=== PATIENT | female | born 1990 | race Caucasian/White ===

== ENCOUNTER 2017-06-15 17:47 | Inpatient (IN) | payer OTHER ==
[~2017-06-15] VITALS: Ht 162.6 cm; Wt 75.9 kg
[2017-06-15] MEDS ORDERED: SODIUM CHLORIDE 0.9% 1,000 ML IV ONE (18:09)
[2017-06-15] MEDS ORDERED: SERT25TA PO (18:23)
[2017-06-15] MEDS ORDERED: SUMA100T3 PO (18:28)
[2017-06-15] MEDS ORDERED: SERT50TA PO (18:28)
[2017-06-15 18:29] LABS: HEMATOCRIT 41.4 % (34.6-47.8); HEMOGLOBIN 14.2 g/dL (11.7-16.4); WHITE BLOOD COUNT 8.9 x10^3/uL (3.4-10)
[2017-06-15] MEDS ORDERED: SODIUM CHLORIDE FLUSH 10ML SYR IVF ONE (18:30)
[2017-06-15] MEDS ORDERED: MORPHINE SULFATE 4 MG/ML, 1ML IVPush PRN (18:30)
[2017-06-15] MEDS ORDERED: ACETAMINOPHEN 500 MG TABLET PO ONE (18:30)
[2017-06-15] MEDS ORDERED: SODIUM CHLORIDE 0.9% 1,000ML IVBOLUS ONE (18:30)
[2017-06-15] MEDS ORDERED: ONDANSETRON 2MG/ML, 2ML IVPush ONE (18:30)
[2017-06-15 18:39] LABS: BLOOD UREA NITROGEN 9 mg/dL (7-18)
[2017-06-15] MEDS ORDERED: MORPHINE SULFATE 4 MG/ML, 1ML ONE ×2 (18:44→21:01)
[2017-06-15] MEDS ORDERED: ONDANSETRON 2MG/ML, 2ML ONE (18:44)
[2017-06-15] MEDS ORDERED: ACETAMINOPHEN 500 MG TABLET ONE (18:44)
[2017-06-15] MEDS ORDERED: LIDOCAINE 1%, 20ML INFIL ONE (19:00)
[2017-06-15] MEDS ORDERED: LIDOCAINE 1%, 20ML ONE (19:38)
[2017-06-15 21:00] LABS: GLUCOSE, CSF 54 mg/dL (40-80)
[2017-06-15] MEDS ORDERED: KETOROLAC 30 MG/1 ML IVPush ONE (21:00)
[2017-06-15] MEDS ORDERED: METOCLOPRAMIDE 5 MG/ML, 2ML IVPush ONE (21:00)
[2017-06-15] MEDS ORDERED: KETOROLAC 30 MG/1 ML ONE (21:01)
[2017-06-15] MEDS ORDERED: METOCLOPRAMIDE 5 MG/ML, 2ML ONE (21:01)
[2017-06-15] MEDS ORDERED: VANCOMYCIN PER PHARMACY MC PRN (22:30)
[2017-06-15] MEDS ORDERED: CEFTRIAXONE PMX 2GM/50ML 50 ML IV SCH (22:30)
[2017-06-15] MEDS ORDERED: CEFTRIAXONE PMX 2GM/50ML 50 ML ONE (22:42)
[2017-06-15] MEDS ORDERED: VANCOMYCIN 1,300 MG in SODIUM CHLORIDE 0.9% 250 ML IV ONE (23:00)
[2017-06-15] MEDS ORDERED: SODIUM CHLORIDE 0.9% IV SCH (23:30)
[2017-06-15] MEDS ORDERED: ACYCLOVIR IV SCH (23:30)
[2017-06-16 00:45] VITALS: BP 95/48
[2017-06-16] MEDS ORDERED: ONDANSETRON 2MG/ML, 2ML IVPush PRN (04:30)
[2017-06-16] MEDS ORDERED: morphine SULFATE 10 MG/ML, 1ML IVPush PRN (04:30)
[2017-06-16] MEDS ORDERED: TEMAZEPAM 15 MG CAPSULE PO PRN (04:30)
[2017-06-16] MEDS ORDERED: ACETAMINOPHEN 325 MG TABLET PO PRN (04:30)
[2017-06-16] MEDS ORDERED: ONDANSETRON ODT 4 MG PO PRN (04:30)
[2017-06-16 07:34] VITALS: BP 110/58
[2017-06-16] MEDS: HYDROcodone/APAP 5/325 TABLET PO PRN ×3 (08:16→20:17)
[2017-06-16 12:30] VITALS: BP 96/56
[2017-06-16] MEDS: CEFTRIAXONE PMX 2GM/50ML 50 ML IV SCH ×2 (12:51→23:01)
[2017-06-16 20:15] VITALS: BP 95/60
[2017-06-17 02:03] VITALS: BP 88/50
[2017-06-17] MEDS: HYDROcodone/APAP 5/325 TABLET PO PRN ×3 (04:26→15:38)
[2017-06-17 04:50] LABS: HEMATOCRIT 32.1 % (34.6-47.8); WHITE BLOOD COUNT 6.1 x10^3/uL (3.4-10)
[2017-06-17 04:56] LABS: BLOOD UREA NITROGEN 10 mg/dL (7-18)
[2017-06-17 04:58] LABS: ASPARTATE AMINO TRANSFERASE 11 U/L (15-37)
[2017-06-17 07:37] VITALS: BP 95/66
[2017-06-17] MEDS: CEFTRIAXONE PMX 2GM/50ML 50 ML IV SCH (11:14)
[2017-06-17] MEDS ORDERED: HYDR-3240 PO (11:29)
[2017-06-17 12:56] VITALS: BP 95/62
== END 2017-06-17 15:40 | disposition home or self-care (01) | DRG 76 ==
LOC: ED 21:27 → EDIP 22:27 → 3NW 06-16 00:20
PROVIDERS: ADMIT Internal Medicine; ATTEND Internal Medicine
PROC: 009U3ZX Drainage of Spinal Canal, Percutaneous Approach, Diagnostic (ICD-10-PCS; principal; 2017-06-15)
PROC: 8E0ZXY6 Isolation (ICD-10-PCS; 2017-06-15)
DX: A87.9 Viral meningitis, unspecified (principal); G31.9 Degenerative disease of nervous system, unspecified; G44.039 Episodic paroxysmal hemicrania, not intractable; J32.0 Chronic maxillary sinusitis; H53.149 Visual discomfort, unspecified; F41.9 Anxiety disorder, unspecified; Z78.9 Other specified health status
CPT/HCPCS: 36415; 62270; 70450; 71020; 80048; 80053; 81003; 82040; 82945; 83605; 84157; 84703; 85025; 87070; 87205; 87252; 89051; 96374; 96375; J0696; J1885; J2405; J3370; J2765; J7030; J7050